=== PATIENT | female | born 1985 | race Two or more races ===

== ENCOUNTER 2020-08-22 11:53 | Emergency (ER) | payer SELFPAY ==
[~2020-08-22] VITALS: Ht 162.6 cm; Wt 69.4 kg
--- NOTE | 2020-08-22 12:59 | NUR ---
FLORENCE OLSON AT BEDSIDE FOR EVALUATION, MEDICATION REQUEST SENT TO PHARMACY.
[2020-08-22] MEDS ORDERED: NEO/POLY/HC EAR SUSP 10ML EACH EAR SCH (13:00)
[2020-08-22] MEDS ORDERED: HYDROcodone/APAP 5/325 TABLET PO ONE (13:30)
[2020-08-22] MEDS ORDERED: HYDROcodone/APAP 5/325 TABLET ONE (13:35)
[2020-08-22 14:06] VITALS: BP 133/87
== END 2020-08-22 14:09 | disposition home or self-care (01) ==
LOC: ED 14:00
DX: H60.13 Cellulitis of external ear, bilateral (principal); H60.503 Unspecified acute noninfective otitis externa, bilateral; F17.290 Nicotine dependence, other tobacco product, uncomplicated
CPT/HCPCS: 99283

== ENCOUNTER 2020-08-25 13:40 | Emergency (ER) | payer SELFPAY ==
[~2020-08-25] VITALS: Ht 162.6 cm; Wt 70.4 kg
[2020-08-25 13:52] VITALS: BP 131/84
== END 2020-08-25 15:06 | disposition home or self-care (01) ==
LOC: ED 14:14
DX: H60.13 Cellulitis of external ear, bilateral (principal)
CPT/HCPCS: 99281